=== PATIENT | female | born 1990 | race African-American/Black ===

== ENCOUNTER 2019-03-22 20:51 | Emergency (ER) | payer MEDICAID ==
[~2019-03-22] VITALS: Ht 157.5 cm; Wt 81.6 kg
[~2019-03-22 20:51] MED LIST: PREN-96 PO
[2019-03-22 23:25] VITALS: BP 124/76
[2019-03-22] MEDS ORDERED: IPRATROPIUM BROM 0.5 MG/2.5ML INH SOL NEB ONE (23:45)
[2019-03-22] MEDS ORDERED: ALBUTEROL SULF 2.5 MG/0.5ML(0.5%) NEB SOLN NEB ONE (23:45)
== END 2019-03-23 00:32 | disposition home or self-care (01) ==
LOC: ER 20:56
DX: J06.9 Acute upper respiratory infection, unspecified (principal)
CPT/HCPCS: 71045; 94640; 99283; J7611; J7644